=== PATIENT | female | born 1975 | race Caucasian/White ===

== ENCOUNTER 2022-11-05 18:57 | Emergency (ER) | payer OTHER, MEDICAID ==
[~2022-11-05] VITALS: Ht 162.6 cm; Wt 72.6 kg
--- NOTE | 2022-11-05 19:20 | NUR ---
PATIENT ELOPED FROM FACILITY. DISCHARGE INSTRUCTIONS NOT GIVEN TO PATIENT. DR. COOPER NOTIFIED. DENIED SI/HI TO KENNETH
== END 2022-11-05 19:20 | disposition left against medical advice (07) ==
LOC: MED 18:57
DX: F41.9 Anxiety disorder, unspecified (principal); F20.9 Schizophrenia, unspecified
CPT/HCPCS: 99283